=== PATIENT | female | born 1995 | race African-American/Black ===

== ENCOUNTER 2025-04-25 12:31 | Emergency (ER) | payer OTHER ==
[~2025-04-25] VITALS: Ht 172.7 cm; Wt 136.0 kg
[~2025-04-25 12:31] MED LIST: ACYC-58 PO; FOLI-43 PO; IBUP-1455 MT; METH-653 MT; PREN-88 PO
[2025-04-25 12:33] VITALS: BP 114/67; PULSE 73; RESP 18; TEMP 97.7; O2SAT 99
== END 2025-04-25 13:33 | disposition left against medical advice (07) ==
LOC: ER 12:31
DX: R10.9 Unspecified abdominal pain (principal); R11.10 Vomiting, unspecified
CPT/HCPCS: 99281